=== PATIENT | male | born 1980 | race Asian ===

== ENCOUNTER 2017-01-03 12:28 | Emergency (ER) | payer MEDICAID ==
[~2017-01-03] VITALS: Ht 177.8 cm; Wt 77.1 kg
[2017-01-03] MEDS ORDERED: Norco 5mg/325mg tab ORAL ONE (13:15)
[2017-01-03] MEDS ORDERED: NORCO 5-325 TA1 EAC1 ORAL (14:09)
[2017-01-03] MEDS ORDERED: IBUPROFEN600 MG ORAL (14:09)
--- NOTE | 2017-01-03 14:09 | Diagnostic Imaging Report ---
Indication: left ankle pain Comparison: None Findings: 3 views of the left ankle obtained. Soft tissue swelling demonstrated especially in the lateral side. There is a tiny avulsive type injury involving the inferior part of the lateral malleolus. Pression: Suggestion of a mild avulsive injury involving the lateral malleolus
--- NOTE | 2017-01-03 14:11 | Diagnostic Imaging Report ---
Indication: Pain Comparison: None Findings: 3 views of the left foot were obtained. There is a nondisplaced fracture involving the plantar aspect of the calcaneus. The fracture involves the lateral and plantar part of the bone and appears to extend toward the subtalar joint probably intra-articular. Soft tissue swelling is noted. Impression: Acute fracture involving the calcaneus. Fracture likely involves the subtalar joint
[2017-01-03 14:19] VITALS: BP 108/67
--- NOTE | 2017-01-03 14:34 | Emergency Room Report ---
History of Present Illness General Chief Complaint: Lower Extremity Injury Source: Patient (ROBERT FREEMAN) Present Illness HPI The patient is a 36-year-old male presenting for left foot pain which began 2 days prior after jumping from a height of 10 feet. he states that his weight landed on the left foot and he denies falling. He denies any other pain including knee pain or back pain. Pain is an 8/10 dull ache primarily to the left ankle and does not radiate. Worse with touch. Denies previous injury to the area. He denies any numbness or tingling (ROBERT FREEMAN) Allergies: Coded Allergies: No Known Allergies (Unverified , 01/03/17) Patient History Past Medical History: see triage record Pertinent Family History: none Reviewed Nursing Documentation: PMH: Agreed, PSxH: Agreed (ROBERT FREEMAN) Nursing Documentation-PMH Past Medical History: No Stated History (ROBERT FREEMAN) Review of Systems All Other Systems: negative except mentioned in HPI (ROBERT FREEMAN) Physical Exam Vital Signs Date Time Temp Pulse Resp B/P (MAP) Pulse Ox O2 Delivery O2 Flow Rate FiO2 01/03/17 12:48 98.1 103 16 121/77 97 Room Air Sp02 EP Interpretation: reviewed, normal General Appearance: no apparent distress, alert, GCS 15, non-toxic Head: normocephalic, atraumatic Eyes: bilateral eye normal inspection, bilateral eye PERRL ENT: hearing grossly normal, normal pharynx, no angioedema, normal voice Musculoskeletal: normal range of motion - l ankle, swelling - L posterior foot , tender - TTP over the L medial and lateral malleoli as well as calcaneus Neurologic: alert, oriented x3, responsive, motor strength/tone normal, sensory intact, speech normal Psychiatric: judgement/insight normal, memory normal, mood/affect normal, no suicidal/homicidal ideation Skin: other - ecchymosis of the L posterior foot (ROBERT FREEMAN) Procedures Splinting Splinting : Consent: Verbal Location: L leg Hand-Made Type: plaster Splint: poserior short Pre-Proc Neuro Vasc Exam: normal Post-Proc Neuro Vasc Exam: normal Patient Tolerated: Well Complications: None (ROBERT FREEMAN) Medical Decision Making PA Attestation Dr. Estevez is my supervising physician. Patient management was discussed with my supervising physician (ROBERT FREEMAN) Diagnostic Impression: Primary Impression: Calcaneus fracture, left Qualified Codes: S92.002A - Unspecified fracture of left calcaneus, initial encounter for closed fracture ER Course The patient is a 36-year-old male presenting for left foot pain Ddx considered include but not limited to sprain/strain, fracture, contusion PE: NAD TTP, edema, and ecchymosis of the L calcaneus and bilat malleoli Full AROM of ankle DP Pulse 2+ X-rays of the left ankle and foot reveal calcaneus fracture Left short leg posterior splint is placed and patient is provided crutches He was told he needs to follow up with orthopedics/podiatry soon as possible. ER precautions given (ROBERT FREEMAN.Clarita) Other X-Ray Diagnostic Results Other X-Ray Diagnostic Results #1: X-Ray ordered: L foot # of Views/Limited Vs Complete: 3 View Indication: Pain EP Interpretation: Yes Interpretation: other - fracture Impression: Other - calcaneus fracture Electronically Signed by: PATRICIA Franklin Text I have reviewed the xray with my supervising physician and interpretation is that there is a calcaneus fracture Other X-Ray Diagnostic Results #2: X-Ray ordered: L ankle # of Views/Limited Vs Complete: 3 View Indication: Pain EP Interpretation: Yes Interpretation: other - fracture Impression: Other - calcaneus fracture Electronically Signed by: PATRICIA Franklin Text I have reviewed the xray with my supervising physician and interpretation is that there is a calcaneus fracture (ROBERT FREEMAN) Other X-Ray Diagnostic Results : Electronically Signed by: Madyson documentation reviewed by me and is accurate, Adriano Estevez MD (Adriano Estevez M.D.) Last Vital Signs Date Time Temp Pulse Resp B/P (MAP) Pulse Ox O2 Delivery O2 Flow Rate FiO2 01/03/17 14:22 98.1 01/03/17 14:19 91 16 108/67 97 Room Air Status: improved (ROBERT FREEMAN) Disposition: HOME, SELF-CARE Condition: Improved Scripts Ibuprofen* (MOTRIN*) 600 Mg Tablet 600 MG ORAL Q8H Y for For Pain, #30 TAB 0 Refills Prov: ROBERT FREEMAN.A. 01/03/17 Hydrocodone Bit/Acetaminophen 5-325* (NORCO 5-325 TABLET*) 1 Each Tablet 1 TAB ORAL Q6HR Y for For Pain, #10 TAB Prov: ROBERT FREEMAN 01/03/17 Patient Instructions: Calcaneal Fracture Repair, DOMINIQUE for Routine Care of Injuries Additional Instructions: I discussed my findings with the patient. All questions and concerns have been answered. Treatment and medication compliance have been addressed. Return to ED if pain remains or worsens, numbness or tingling occurs, new rash is noticed, fever is noticed, or if needed for any reason. Patient verbalized understanding of discharge instructions. Advised patient they need to follow up with orthopedics/podiatry as soon as possible ROBERT FREEMAN Jan 03, 2017 14:34 Adriano Estevez M.D. Jan 08, 2017 14:50
== END 2017-01-03 15:06 | disposition home or self-care (01) ==
LOC: EMR 13:24
DX: S92.002A Unspecified fracture of left calcaneus, initial encounter for closed fracture (principal); W17.89XA Other fall from one level to another, initial encounter; Y92.89 Other specified places as the place of occurrence of the external cause
CPT/HCPCS: 99284